=== PATIENT | female | born 1945 | race Caucasian/White ===

== ENCOUNTER 2017-01-17 20:41 | Emergency (ER) | payer MEDICARE, OTHER ==
[~2017-01-17] VITALS: Ht 167.6 cm; Wt 107.0 kg
[2017-01-17 20:45] VITALS: BP 176/84; PULSE 72; RESP 20; TEMP 97.9; O2SAT 97
[2017-01-17 21:37] VITALS: BP 168/85; PULSE 69; RESP 20; O2SAT 97
[2017-01-17 21:44] VITALS: BP 146/67; PULSE 71; RESP 20; O2SAT 98
[2017-01-17 21:46] LABS: AUTOMATED NEUTROPHIL # 3.1 TH/MM3 (1.8-7.7); BASOPHIL % 0.7 % (0.0-2.0); EOSINOPHIL # 0.2 TH/MM3 (0-0.4); EOSINOPHIL % 3.8 % (0.0-4.0); HEMATOCRIT 40.6 % (35.0-46.0); HEMO FLAGS DIFF FINAL; LYMPH % 32.5 % (9.0-44.0); LYMPHOCYTE # 1.9 TH/MM3 (1.0-4.8); MEAN CELL VOLUME 84.8 FL (80.0-100.0); MEAN CORPUSCULAR HEMOGLOBIN 28.7 PG (27.0-34.0); MEAN CORPUSCULAR HGB CONC 33.8 % (32.0-36.0); PLATELET COUNT 119 TH/MM3 (150-450); RED BLOOD COUNT 4.78 MIL/MM3 (4.00-5.30); RED CELL DISTRIBUTION WIDTH 12.9 % (11.6-17.2); WHITE BLOOD COUNT 5.7 TH/MM3 (4.0-11.0)
[2017-01-17 21:48] LABS: POTASSIUM 3.8 MEQ/L (3.5-5.1)
--- NOTE | 2017-01-17 21:48 | PD ---
HPI Chief Complaint: Musculoskeletal Complaint Time Seen by Provider: 20:59 Travel History International Travel<30 days: No Contact w/Intl Traveler<30days: No Traveled to known affect area: No History of Present Illness HPI 71-year-old female with history of A. fib on Eliquis, here for evaluation of right lower extremity pain and swelling concern for possible DVT. Patient reports having similar symptoms in June, however symptoms somewhat improved , and she was never evaluated for them. Symptoms returned about 2 weeks ago after flying from [place] to here. She denies trauma. No history of DVT or PE. She states that she was on Pradaxa for her A. fib, however was recently switched to Eliquis 3 weeks ago. No chest pain or dyspnea. PFSH Past Medical History Hx Anticoagulant Therapy: Yes (Eliquis) Cardiovascular Problems: Yes (A Fib, pacemaker, heart failure ) Past Surgical History Hysterectomy: Yes Social History Tobacco Use: No Allergies-Medications (Allergen,Severity, Reaction): Coded Allergies: No Known Drug Allergies (Verified Allergy, Unknown, 01/17/17) Reported Meds & Prescriptions Reported Meds & Active Scripts Active Eliquis (Apixaban) 5 Mg Tab 5 Mg PO BID Reported Vitamin D (Ergocalciferol (Vitamin D2)) 400 Unit Tablet 400 Mg PO DAILY Amiodarone (Amiodarone HCl) 100 Mg Tab 100 Mg PO BID Carvedilol 12.5 Mg Tab 12.5 Mg PO BID Quetiapine (Quetiapine Fumarate) 50 Mg Tab 50 Mg PO DAILY Eliquis (Apixaban) 5 Mg Tab 5 Mg PO BID Losartan-Hydrochlorothiazide 100-25 Mg Tab 1 Tab PO DAILY Sertraline (Sertraline HCl) 100 Mg Tab 100 Mg PO DAILY Amlodipine (Amlodipine Besylate) 10 Mg Tab 10 Mg PO DAILY Alprazolam 0.5 Mg Tab 0.5 Mg PO BID PRN Review of Systems Except as stated in HPI: all other systems reviewed are Neg Physical Exam Narrative GENERAL: Well-developed, well-nourished, comfortable, no apparent distress. SKIN: Focused skin assessment warm/dry. HEAD: Atraumatic. Normocephalic. EYES: Pupils equal and round. No scleral icterus. No injection or drainage. ENT: Mucous membranes pink and moist. NECK: Trachea midline. No JVD. CARDIOVASCULAR: Regular rate and rhythm. Bilateral dorsalis pedis pulses are brisk and equal. RESPIRATORY: No accessory muscle use. Clear to auscultation. Breath sounds equal bilaterally. GASTROINTESTINAL: Abdomen soft, non-tender, nondistended. MUSCULOSKELETAL: No obvious deformities. No clubbing. No cyanosis. Moderate right lower extremity edema when compared to the left without warmth or erythema. There is mild right calf tenderness. NEUROLOGICAL: Awake and alert. No obvious cranial nerve deficits. Motor grossly within normal limits. Normal speech. PSYCHIATRIC: Appropriate mood and affect; insight and judgment normal. Data Data Last Documented VS Vital Signs Date Time Temp Pulse Resp B/P (MAP) Pulse Ox O2 Delivery O2 Flow Rate FiO2 01/17/17 23:20 72 20 155/74 (101) 97 01/17/17 21:37 Room Air 01/17/17 20:45 97.9 Orders Orders Basic Metabolic Panel (Bmp) (01/17/17 21:17) Complete Blood Count With Diff (01/17/17 21:17) Prothrombin Time / Inr (Pt) (01/17/17 21:17) Act Partial Throm Time (Ptt) (01/17/17 21:17) Iv Access Insert/Monitor (01/17/17 21:17) Ecg Monitoring (01/17/17 21:17) Oximetry (01/17/17 21:17) Foot, Complete (Osx2oul) (01/17/17 ) Us Leg Venous Doppler (01/17/17 ) Labs Laboratory Tests Test 01/17/17 21:31 White Blood Count 5.7 TH/MM3 Red Blood Count 4.78 MIL/MM3 Hemoglobin 13.7 GM/DL Hematocrit 40.6 % Mean Corpuscular Volume 84.8 FL Mean Corpuscular Hemoglobin 28.7 PG Mean Corpuscular Hemoglobin Concent 33.8 % Red Cell Distribution Width 12.9 % Platelet Count 119 TH/MM3 Mean Platelet Volume 8.3 FL Neutrophils (%) (Auto) 55.0 % Lymphocytes (%) (Auto) 32.5 % Monocytes (%) (Auto) 8.0 % Eosinophils (%) (Auto) 3.8 % Basophils (%) (Auto) 0.7 % Neutrophils # (Auto) 3.1 TH/MM3 Lymphocytes # (Auto) 1.9 TH/MM3 Monocytes # (Auto) 0.5 TH/MM3 Eosinophils # (Auto) 0.2 TH/MM3 Basophils # (Auto) 0.0 TH/MM3 CBC Comment DIFF FINAL Differential Comment Prothrombin Time 11.4 SEC Prothromb Time International Ratio 1.0 RATIO Activated Partial Thromboplast Time 27.3 SEC Blood Urea Nitrogen 20 MG/DL Creatinine 1.20 MG/DL Random Glucose 93 MG/DL Calcium Level 9.1 MG/DL Sodium Level 139 MEQ/L Potassium Level 3.8 MEQ/L Chloride Level 106 MEQ/L Carbon Dioxide Level 24.9 MEQ/L Anion Gap 8 MEQ/L Estimat Glomerular Filtration Rate 44 ML/MIN MDM Medical Decision Making Medical Screen Exam Complete: Yes Emergency Medical Condition: Yes Differential Diagnosis DVT, venous insufficiency, lymphedema Narrative Course Vital signs reviewed. CBC is unremarkable. BMP is remarkable for BUN 20, creatinine 1.2, GFR 44. Right foot x-ray: No acute bony findings. Soft tissue swelling present. Right lower extremity venous duplex: Read as normal examination. Patient made aware of all findings. She is resting comfortably. She does have moderate right lower extremity edema when compared to the right, however all compartments are supple. Breasts dorsalis pedis pulses bilaterally. She is on Eliquis 5mg twice daily for A. fib. She does not know when she will be returning to [place], and does not believe she has enough to last. I will give her a refill of this medication. She was instructed to follow-up with her primary care physician when she returns to [place]. She was informed on when to return to the emergency department. She verbalizes understanding and agreement with plan. Diagnosis Primary Impression: Leg edema, right Referrals: Primary Care Physician 3 days Additional Instructions: Follow-up with your primary care physician when you return to [place]. Return to the emergency department for worsening symptoms or any other concerns. Scripts Apixaban (Eliquis) 5 Mg Tab 5 MG PO BID for Blood Clot Prevention, #60 TAB 0 Refills Prov: Daryl Fulton MD 01/17/17 Disposition: 01 DISCHARGE HOME Condition: Stable Daryl Fulton MD Jan 17, 2017 21:48
[2017-01-17 21:52] LABS: BICARBONATE 24.9 MEQ/L (21.0-32.0)
[2017-01-17 21:55] LABS: APTT (PATIENT) 27.3 SEC (24.3-30.1); PROTHROMBIN TIME - PATIENT 11.4 SEC (9.8-11.6)
[2017-01-17] MEDS ORDERED: APIX5TAB PO ×2 (22:04→23:04)
[2017-01-17] MEDS ORDERED: LOSA100T2 PO (22:04)
[2017-01-17] MEDS ORDERED: ALPR0.5T3 PO (22:04)
[2017-01-17] MEDS ORDERED: SERT-129 PO (22:04)
[2017-01-17] MEDS ORDERED: AMLO10TA2 PO (22:04)
[2017-01-17] MEDS ORDERED: QUET5TAB PO (22:05)
[2017-01-17] MEDS ORDERED: ERGO400T PO (22:05)
[2017-01-17] MEDS ORDERED: AMIO0.1T PO (22:05)
[2017-01-17] MEDS ORDERED: CARV12.52 PO (22:05)
--- NOTE | 2017-01-17 22:38 | RADRPT ---
EXAM DATE/TIME: 01/17/2017 22:08 [facility] COMPARISON: No previous studies available for comparison. INDICATIONS : Right foot swelling for 10 days. MEDICAL HISTORY : Congestive heart failure. Atrial fibrillation, Anticoagulant therapy, History of kidney stones. SURGICAL HISTORY : Pacemaker. Cholecystectomy. Hysterectomy. ENCOUNTER: Initial ACUITY: 2 weeks PAIN SCORE: 4/10 LOCATION: Right foot. FINDINGS: Three view examination of the right foot demonstrates no dislocation, or fracture. The tarsal bones appear intact. The interphalangeal and metatarsophalangeal joints are intact. The calcaneus is int act. Bony mineralization is normal. CONCLUSION: 1. No acute bony findings. Soft tissue swelling present. Omer Conner MD on January 17, 2017 at 22:35 Board Certified Radiologist. This report was verified electronically.
--- NOTE | 2017-01-17 22:43 | RADRPT ---
EXAM DATE/TIME: 01/17/2017 21:43 [facility] COMPARISON: No previous studies available for comparison. INDICATIONS : Right leg swelling. MEDICAL HISTORY : Congestive heart failure. Afib. Anticoagulant therapy, Eliquis. SURGICAL HISTORY : Hysterectomy. Pacemaker. ENCOUNTER: Initial ACUITY: 2 weeks PAIN SCORE: 1/10 LOCATION: Right leg. TECHNIQUE: Venous ultrasound of the leg was performed from the inguinal ligament to the proximal calf. Real-yuni e, color Doppler and spectral tracing, compression and augmentation techniques were used. FINDINGS: There is normal compressibility of the deep venous system from the inguinal region to the proximal ca lf. No echogenic clot is seen in the lumen of the common femoral, femoral, popliteal, and posterior tibial veins. There is a normal response of the venous system to proximal and distal augmentation an d respiration. CONCLUSION: Normal examination. Omer Conner MD on January 17, 2017 at 22:41 Board Certified Radiologist. This report was verified electronically.
[2017-01-17 22:45] VITALS: BP 162/88; PULSE 74; RESP 20; O2SAT 98
[2017-01-17 23:20] VITALS: BP 155/74
== END 2017-01-18 01:48 | disposition home or self-care (01) ==
LOC: PHED 20:41
DX: R60.0 Localized edema (principal); M79.604 Pain in right leg; I48.91 Unspecified atrial fibrillation; Z95.0 Presence of cardiac pacemaker; I50.9 Heart failure, unspecified; Z79.01 Long term (current) use of anticoagulants
CPT/HCPCS: 73630; 80048; 85025; 85610; 85730; 93971

== ENCOUNTER 2017-01-20 19:31 | Emergency (ER) | payer MEDICARE, OTHER ==
[~2017-01-20] VITALS: Ht 167.6 cm; Wt 105.2 kg
[~2017-01-20 19:31] MED LIST: ALPR0.5T3 PO; AMIO0.1T PO; AMLO10TA2 PO; APIX5TAB PO; CARV12.52 PO; ERGO400T PO; LOSA100T2 PO; QUET5TAB PO; SERT-129 PO
[2017-01-20 19:51] VITALS: BP 146/57; PULSE 70; RESP 18; TEMP 98.5; O2SAT 97
--- NOTE | 2017-01-20 20:34 | PD ---
HPI Chief Complaint: Edema Time Seen by Provider: 20:21 Travel History International Travel<30 days: No Contact w/Intl Traveler<30days: No Traveled to known affect area: No History of Present Illness HPI 71-year-old female complaining of pain and swelling of the right foot. Patient states that symptoms started about 10 days ago. Patient denies any injury to the right foot. Patient has history of atrial fibrillation and on Eliquis. Patient was seen in emergency room 3 days ago and x-ray of the right foot was negative for acute pathology. Soft tissue swelling noted. Doppler study right leg negative for DVT. Patient was advised to continue with ryan delgado follow with a local physician. Patient is from [place] and awaiting flight to go back to [place]. Patient states that she has increasing pain and swelling since last visit. Patient denies any fever chills. On a scale of 1-10 the pain is a 7. PFSH Past Medical History Hx Anticoagulant Therapy: Yes (Eliquis) Anxiety: Yes Heart Rhythm Problems: Yes Cardiovascular Problems: Yes (CHF) Diminished Hearing: No Hypertension: Yes Kidney Stones: Yes ?: Not Tubal Ligation: Yes Past Surgical History Cholecystectomy: Yes Hysterectomy: Yes Pacemaker: Yes Social History Alcohol Use: No Tobacco Use: No Substance Use: No Allergies-Medications (Allergen,Severity, Reaction): Coded Allergies: No Known Drug Allergies (Verified Allergy, Unknown, 01/20/17) Reported Meds & Prescriptions Reported Meds & Active Scripts Active Eliquis (Apixaban) 5 Mg Tab 5 Mg PO BID Reported Vitamin D (Ergocalciferol (Vitamin D2)) 400 Unit Tablet 400 Mg PO DAILY Amiodarone (Amiodarone HCl) 100 Mg Tab 100 Mg PO BID Carvedilol 12.5 Mg Tab 12.5 Mg PO BID Quetiapine (Quetiapine Fumarate) 50 Mg Tab 50 Mg PO DAILY Eliquis (Apixaban) 5 Mg Tab 5 Mg PO BID Losartan-Hydrochlorothiazide 100-25 Mg Tab 1 Tab PO DAILY Sertraline (Sertraline HCl) 100 Mg Tab 100 Mg PO DAILY Amlodipine (Amlodipine Besylate) 10 Mg Tab 10 Mg PO DAILY Alprazolam 0.5 Mg Tab 0.5 Mg PO BID PRN Review of Systems General / Constitutional: No: Fever Eyes: No: Visual changes HENT: No: Headaches Cardiovascular: No: Chest Pain or Discomfort Respiratory: No: Shortness of Breath Gastrointestinal: No: Abdominal Pain Genitourinary: No: Dysuria Musculoskeletal: Positive: Edema, Pain Skin: No Rash Neurologic: No: Weakness Psychiatric: No: Depression Endocrine: No: Polydipsia Hematologic/Lymphatic: No: Easy Bruising Physical Exam Narrative GENERAL: Well-nourished, well-developed patient. SKIN: Focused skin assessment warm/dry. HEAD: Normocephalic. EYES: No scleral icterus. No injection or drainage. NECK: Supple, trachea midline. No JVD or lymphadenopathy. CARDIOVASCULAR: Regular rate and rhythm without murmurs, gallops, or rubs. RESPIRATORY: Breath sounds equal bilaterally. No accessory muscle use. GASTROINTESTINAL: Abdomen soft, non-tender, nondistended. MUSCULOSKELETAL: No cyanosis, or edema. BACK: Nontender without obvious deformity. No CVA tenderness. Patient has soft tissue swelling tenderness dorsal aspect of the right foot. Full range of motion of the toes. Data Data Last Documented VS Vital Signs Date Time Temp Pulse Resp B/P (MAP) Pulse Ox O2 Delivery O2 Flow Rate FiO2 01/20/17 20:46 98.5 70 18 142/62 (88) 97 Room Air Orders Orders Ct Foot W/O Contrast (01/20/17 ) [facility] Medical Decision Making Medical Screen Exam Complete: Yes Emergency Medical Condition: Yes Interpretation(s) Last Impressions Lower Extremity CT 01/20/17 0000 Signed Impressions: Service Date/Time: Friday, January 20, 2017 20:44 - CONCLUSION: 1. Soft tissue swelling on the dorsum of the foot. No acute bony abnormalities identified. No discrete fluid collections. Omer Conner MD Differential Diagnosis Differential diagnosis including hematoma, sprain, fracture, dislocation. Narrative Course 71-year-old female with persistent pain swelling dorsal aspect of the right foot. X-ray the right foot and Doppler study right leg negative for acute pathology recently. Lortab 5/325, one tablet by mouth given. Calvin wrap right foot. Diagnosis Primary Impression: Traumatic ecchymosis of right foot Qualified Codes: S90.31XD - Contusion of right foot, subsequent encounter Patient Instructions: General Instructions Additional Instructions: Calvin wrap to right foot. Take medications needed for pain. Follow-up with personal physician. Med/Other Pt SpecificInfo: Prescription(s) given Scripts Hydrocodone-Acetaminophen ([place]) 5-325 mg Tab 1 TAB PO Q6H Y for PAIN, #30 TAB 0 Refills Prov: Bob Crump MD 01/20/17 Disposition: 01 DISCHARGE HOME Condition: Stable Bob Crump MD Jan 20, 2017 20:34
[2017-01-20 20:46] VITALS: BP 142/62; PULSE 70; RESP 18; TEMP 98.5; O2SAT 97
--- NOTE | 2017-01-20 21:12 | RADRPT ---
EXAM DATE/TIME: 01/20/2017 20:44 [facility] COMPARISON: No previous studies available for comparison. INDICATIONS : Right foot swelling and pain. Negative US and xray exams earlier this week. Redness lateral aspect o f right foot. No known injury. RADIATION DOSE: 6.15 CTDIvol (mGy) MEDICAL HISTORY : None SURGICAL HISTORY : ENCOUNTER: Initial ACUITY: 2 weeks PAIN SCALE: 7/10 LOCATION: Right lateral foot TECHNIQUE: Volumetric scanning of the foot was performed. Using automated exposure control and adjustment of th e mA and/or kV according to patient size, radiation dose was kept as low as reasonably achievable to obtain optimal diagnostic quality images. DICOM format image data is available electronically for re view and comparison. FINDINGS: There is soft tissue swelling on the dorsum of the foot predominantly laterally. No abnormal fluid co llections. No acute bony abnormalities. No dislocation. CONCLUSION: 1. Soft tissue swelling on the dorsum of the foot. No acute bony abnormalities identified. No discret e fluid collections. Omer Conner MD on January 20, 2017 at 21:08 Board Certified Radiologist. This report was verified electronically.
[2017-01-20] MEDS ORDERED: ACETAMINOPHEN/HYDROcodone 325 MG/5 MG TAB PO ONE (21:30)
[2017-01-20] MEDS ORDERED: NORC5TAB PO (21:31)
[2017-01-20 21:45] VITALS: BP 136/64; PULSE 70; RESP 18; O2SAT 97
[2017-01-20 21:50] VITALS: BP 142/68
== END 2017-01-20 21:50 | disposition home or self-care (01) ==
LOC: PHED 19:31
DX: S90.31XA Contusion of right foot, initial encounter (principal); I48.91 Unspecified atrial fibrillation; X58.XXXA Exposure to other specified factors, initial encounter
CPT/HCPCS: 73700; 99284